=== PATIENT | male | born 1950 | race Caucasian/White ===

== ENCOUNTER 2017-12-12 19:52 | Inpatient (IN) | payer MEDICARE, BC ==
[~2017-12-12] VITALS: Ht 167.6 cm; Wt 75.4 kg
[~2017-12-12 19:52] MED LIST: ABAT250V; ALBU90OI6 INH; ALLO100 PO; AMOCLA875 PO; Aspir 8181 MG PO; CARV25 PO; COMBIVENT RESPIM4 GM INH; DOCU100 PO; FAMO20 PO; FOLI1 PO; FURO40 PO; HYDR100 PO; INS70/30PN SC; INSDET100 SC; INSU100I6; INSULANPEN SC; Isosorbide Mono30 MG PO; LEVSOD50 PO; LEVSOD75 PO; LISI5 PO; NIFE30ER PO; Novolog Fl100 UNIT/1 SC; OXYACE7.5T PO; Pepcid40 MG PO; ROSU10TA PO; SODBIC650 PO; SPIR25 PO; SUCR1 PO
[2017-12-12 20:28] LABS: BASOPHILS ABSOLUTE AUTO 0.09 K/mm3 (0.00-0.23); BASOPHILS PERCENT AUTO 1 % (0-2); EOSINOPHILS ABSOLUTE AUTO 0.15 K/mm3 (0.00-0.68); EOSINOPHILS PERCENT AUTO 2 % (0-6); Hematocrit 33.6 % (37.0-53.0); Hemoglobin 10.7 g/dL (13.5-17.5); IMMATURE GRAN ABSOLUTE AUTO 0.05 K/mm3 (0.00-0.10); IMMATURE GRAN PERCENT AUTO 1 % (0-1); LYMPHOCYTES PERCENT AUTO 13 % (21-46); MONOCYTES ABSOLUTE AUTO 1.01 K/mm3 (0.16-1.47); MONOCYTES PERCENT AUTO 14 % (4-13); Mean Corpuscular HGB 28.2 pg (26.0-34.0); Mean Corpuscular HGB Conc 31.8 g/dL (31.5-36.5); Mean Corpuscular Volume 88 fL (80-100); Mean Platelet Volume 9.2 fL (9.1-12.4); NEUTROPHILS ABSOLUTE AUTO 4.93 K/mm3 (1.96-9.15); NEUTROPHILS PERCENT AUTO 69 % (41-73); Platelet Count 304 K/mm3 (150-400); RDW Coefficient Variation 14.5 % (11.7-14.2); RDW Standard Deviation 46.8 fL (35.1-46.3); White Blood Cell Count 7.13 K/mm3 (4.00-11.30)
[2017-12-12 20:46] LABS: Influenza A Positive (NEGATIVE); Influenza B Negative (NEGATIVE)
[2017-12-12 20:50] LABS: Albumin, Blood 3.2 g/dL (3.4-5.0); Albumin/Globulin Ratio 0.6 (0.8-1.8); Bilirubin, Total 0.9 mg/dL (0.1-1.0); Bun/Creatinine Ratio 20.9 (12.0-20.0); Calcium, Blood 8.6 mg/dL (8.5-10.1); Creatinine, Blood 2.35 mg/dL (0.60-1.20); Potassium, Blood 3.7 mmol/L (3.5-5.5); Total Protein, Blood 8.2 g/dL (6.4-8.2); Troponin I 0.089 ng/mL (0.000-0.040)
[2017-12-12] MEDS ORDERED: FURO40 PO (21:19)
[2017-12-12] MEDS ORDERED: ALLO100 PO (21:21)
[2017-12-12 22:58] LABS: Troponin I 0.115 ng/mL (0.000-0.040)
[2017-12-13 05:58] LABS: BASOPHILS ABSOLUTE AUTO 0.08 K/mm3 (0.00-0.23); BASOPHILS PERCENT AUTO 1 % (0-2); EOSINOPHILS ABSOLUTE AUTO 0.08 K/mm3 (0.00-0.68); EOSINOPHILS PERCENT AUTO 1 % (0-6); Hematocrit 35.8 % (37.0-53.0); Hemoglobin 11.5 g/dL (13.5-17.5); IMMATURE GRAN ABSOLUTE AUTO 0.04 K/mm3 (0.00-0.10); IMMATURE GRAN PERCENT AUTO 1 % (0-1); LYMPHOCYTES PERCENT AUTO 14 % (21-46); MONOCYTES ABSOLUTE AUTO 0.81 K/mm3 (0.16-1.47); MONOCYTES PERCENT AUTO 11 % (4-13); Mean Corpuscular HGB 28.2 pg (26.0-34.0); Mean Corpuscular HGB Conc 32.1 g/dL (31.5-36.5); Mean Corpuscular Volume 88 fL (80-100); Mean Platelet Volume 9.3 fL (9.1-12.4); NEUTROPHILS ABSOLUTE AUTO 5.18 K/mm3 (1.96-9.15); NEUTROPHILS PERCENT AUTO 72 % (41-73); Platelet Count 302 K/mm3 (150-400); RDW Coefficient Variation 14.4 % (11.7-14.2); RDW Standard Deviation 46.4 fL (35.1-46.3); Red Blood Cell Count 4.08 M/mm3 (4.30-5.90); White Blood Cell Count 7.19 K/mm3 (4.00-11.30)
[2017-12-13 06:18] LABS: Albumin, Blood 2.9 g/dL (3.4-5.0); Albumin/Globulin Ratio 0.6 (0.8-1.8); Bilirubin, Total 0.7 mg/dL (0.1-1.0); Bun/Creatinine Ratio 22.5 (12.0-20.0); Calcium, Blood 8.3 mg/dL (8.5-10.1); Creatinine, Blood 2.09 mg/dL (0.60-1.20); Globulin, Blood 4.7 g/dL (2.2-4.0); Potassium, Blood 3.8 mmol/L (3.5-5.5); Total Protein, Blood 7.6 g/dL (6.4-8.2); Troponin I 0.372 ng/mL (0.000-0.040)
[2017-12-13 06:31] LABS: Creatine Kinase MB 2.3 ng/mL (0.0-3.6); Creatine Kinase MB Index 0.5 (0.0-4.0)
[2017-12-13 07:32] LABS: Source, Urine Clean Catch
[2017-12-13 07:34] LABS: Bilirubin, Urine Neg (Neg); Blood, Urine 3+ (Neg); Glucose Qualitative, Urine Neg (Neg); Ketones, Urine Neg (Neg); Leukocyte Esterase, Urine Neg (Neg); Nitrite, Urine Neg (Neg); Protein, Urine 3+ (Neg); Specific Gravity, Urine 1.015 (1.003-1.022); Urobilinogen, Urine NORM (Normal)
[2017-12-13 07:52] LABS: Appearance, Urine Clear (Clear); Color, Urine Yellow (P-Yellow)
[2017-12-13 07:55] LABS: Bacteria Not Seen /hpf; Squamous Epithelial Cells Few /hpf (Few); White Blood Cells, Urine Not Seen /hpf (0-5)
[2017-12-14 04:40] LABS: BASOPHILS ABSOLUTE AUTO 0.02 K/mm3 (0.00-0.23); BASOPHILS PERCENT AUTO 0 % (0-2); EOSINOPHILS PERCENT AUTO 0 % (0-6); Hematocrit 32.8 % (37.0-53.0); Hemoglobin 10.9 g/dL (13.5-17.5); IMMATURE GRAN ABSOLUTE AUTO 0.05 K/mm3 (0.00-0.10); IMMATURE GRAN PERCENT AUTO 1 % (0-1); LYMPHOCYTES ABSOLUTE AUTO 0.71 K/mm3 (0.84-5.20); LYMPHOCYTES PERCENT AUTO 8 % (21-46); MONOCYTES ABSOLUTE AUTO 0.29 K/mm3 (0.16-1.47); MONOCYTES PERCENT AUTO 3 % (4-13); Mean Corpuscular HGB 28.3 pg (26.0-34.0); Mean Corpuscular HGB Conc 33.2 g/dL (31.5-36.5); Mean Platelet Volume 9.6 fL (9.1-12.4); NEUTROPHILS ABSOLUTE AUTO 8.23 K/mm3 (1.96-9.15); NEUTROPHILS PERCENT AUTO 89 % (41-73); Platelet Count 286 K/mm3 (150-400); RDW Standard Deviation 43.5 fL (35.1-46.3); Red Blood Cell Count 3.85 M/mm3 (4.30-5.90)
[2017-12-14 04:45] LABS: Mean Corpuscular Volume 85 fL (80-100)
[2017-12-14 05:04] LABS: Creatine Kinase MB 1.9 ng/mL (0.0-3.6); Creatine Kinase MB Index 0.6 (0.0-4.0); Creatinine, Blood 2.41 mg/dL (0.60-1.20); Potassium, Blood 4.1 mmol/L (3.5-5.5)
[2017-12-15 04:26] LABS: Bun/Creatinine Ratio 33.9 (12.0-20.0); Calcium, Blood 7.8 mg/dL (8.5-10.1); Creatinine, Blood 2.42 mg/dL (0.60-1.20); Potassium, Blood 3.6 mmol/L (3.5-5.5)
[2017-12-16 05:38] LABS: Bun/Creatinine Ratio 35.3 (12.0-20.0); Calcium, Blood 7.9 mg/dL (8.5-10.1); Creatinine, Blood 2.38 mg/dL (0.60-1.20); Potassium, Blood 3.3 mmol/L (3.5-5.5)
[2017-12-17] MEDS ORDERED: OSEL75CA PO (10:36)
[2018-06-24] MEDS ORDERED: Ropinirole HCl0.5 MG PO (18:44)
[2018-06-24] MEDS ORDERED: GABA100 PO (18:44)
[2018-06-24] MEDS ORDERED: FOLI1 PO (18:45)
[2018-06-24] MEDS ORDERED: FAMO20 PO (18:45)
[2018-06-24] MEDS ORDERED: INSULANPEN (18:46)
[2018-06-24] MEDS ORDERED: Norco 5-325 Ta1 EACH PO (18:56)
== END 2017-12-17 11:25 | disposition home or self-care (01) | DRG 193 ==
LOC: ER 19:52 → PCU 21:41 → MEDS 21:41 → PCU 22:43 → MEDS 12-15 12:54 → ENPENDDIS 12-17 10:11 → MEDS 12-17 11:25
PROVIDERS: Emergency Medicine; Hospitalist; Internal Medicine
PROC: 5A09357 Assistance with Respiratory Ventilation, Less than 24 Consecutive Hours, Continuous Positive Airway Pressure (ICD-10-PCS; principal; 2017-12-12)
DX: J10.1 Influenza due to other identified influenza virus with other respiratory manifestations (principal); J96.01 Acute respiratory failure with hypoxia; I21.4 Non-ST elevation (NSTEMI) myocardial infarction; I50.33 Acute on chronic diastolic (congestive) heart failure; I13.0 Hypertensive heart and chronic kidney disease with heart failure and stage 1 through stage 4 chronic kidney disease, or unspecified chronic kidney disease; N18.3 Chronic kidney disease, stage 3 (moderate); E11.22 Type 2 diabetes mellitus with diabetic chronic kidney disease; E11.65 Type 2 diabetes mellitus with hyperglycemia; I25.10 Atherosclerotic heart disease of native coronary artery without angina pectoris; E78.5 Hyperlipidemia, unspecified; E03.9 Hypothyroidism, unspecified; K21.9 Gastro-esophageal reflux disease without esophagitis; D63.8 Anemia in other chronic diseases classified elsewhere; E66.9 Obesity, unspecified; J44.9 Chronic obstructive pulmonary disease, unspecified; T38.0X5A Adverse effect of glucocorticoids and synthetic analogues, initial encounter; Y92.239 Unspecified place in hospital as the place of occurrence of the external cause; Z95.810 Presence of automatic (implantable) cardiac defibrillator; Z88.5 Allergy status to narcotic agent; Z95.5 Presence of coronary angioplasty implant and graft; Z68.27 Body mass index [BMI] 27.0-27.9, adult; Z79.82 Long term (current) use of aspirin; Z79.4 Long term (current) use of insulin; Z79.899 Other long term (current) drug therapy
CPT/HCPCS: 36415; 71045; 71046; 80048; 80053; 81001; 82550; 82553; 82947; 83880; 84145; 84484; 85025; 87040; 87493; 87804; 93005; 93010; 94640; 94660; 94762; 99285; J0696; J1650; J1815; J1817; J1940; J1956; J2930; J7030

== ENCOUNTER 2018-03-31 13:10 | Inpatient (IN) | payer MEDICARE, BC ==
[~2018-03-31] VITALS: Ht 167.6 cm; Wt 72.1 kg
[~2018-03-31 13:10] MED LIST changes: +OSEL75CA PO
[2018-03-31] MEDS ORDERED: ISODIN20 PO (13:35)
[2018-03-31] MEDS ORDERED: METO2.5 PO (13:37)
[2018-03-31 13:40] LABS: Performing Lab VAMCL; Test Name PT
[2018-03-31 13:42] LABS: BASOPHILS ABSOLUTE AUTO 0.07 K/mm3 (0.00-0.23); BASOPHILS PERCENT AUTO 1 % (0-2); EOSINOPHILS ABSOLUTE AUTO 0.39 K/mm3 (0.00-0.68); EOSINOPHILS PERCENT AUTO 3 % (0-6); Hematocrit 31.1 % (37.0-53.0); Hemoglobin 11.3 g/dL (13.5-17.5); IMMATURE GRAN ABSOLUTE AUTO 0.07 K/mm3 (0.00-0.10); IMMATURE GRAN PERCENT AUTO 1 % (0-1); LYMPHOCYTES ABSOLUTE AUTO 3.27 K/mm3 (0.84-5.20); LYMPHOCYTES PERCENT AUTO 25 % (21-46); MONOCYTES ABSOLUTE AUTO 0.94 K/mm3 (0.16-1.47); MONOCYTES PERCENT AUTO 7 % (4-13); Mean Corpuscular HGB 28.8 pg (26.0-34.0); Mean Corpuscular HGB Conc 36.3 g/dL (31.5-36.5); Mean Corpuscular Volume 79 fL (80-100); Mean Platelet Volume 9.9 fL (9.1-12.4); NEUTROPHILS ABSOLUTE AUTO 8.24 K/mm3 (1.96-9.15); NEUTROPHILS PERCENT AUTO 64 % (41-73); Platelet Count 313 K/mm3 (150-400); RDW Coefficient Variation 14.3 % (11.7-14.2); RDW Standard Deviation 41.3 fL (35.1-46.3); Red Blood Cell Count 3.92 M/mm3 (4.30-5.90); White Blood Cell Count 12.98 K/mm3 (4.00-11.30)
[2018-03-31 14:02] LABS: Troponin I 0.021 ng/mL (0.000-0.040)
[2018-03-31 14:07] LABS: Albumin, Blood 3.2 g/dL (3.4-5.0); Albumin/Globulin Ratio 0.6 (0.8-1.8); Bilirubin, Total 0.6 mg/dL (0.1-1.0); Bun/Creatinine Ratio 32.6 (12.0-20.0); Calcium, Blood 8.8 mg/dL (8.5-10.1); Creatinine, Blood 3.4 mg/dL (0.60-1.20); Globulin, Blood 5.1 g/dL (2.2-4.0); Total Protein, Blood 8.3 g/dL (6.4-8.2)
[2018-03-31 18:23] LABS: Source, Urine Clean Catch
[2018-03-31 18:32] LABS: Bilirubin, Urine Neg (Neg); Blood, Urine Neg (Neg); Glucose Qualitative, Urine Neg (Neg); Ketones, Urine Neg (Neg); Leukocyte Esterase, Urine Neg (Neg); Nitrite, Urine Neg (Neg); Protein, Urine 3+ (Neg); Specific Gravity, Urine 1.015 (1.003-1.022); Urobilinogen, Urine NORM (Normal)
[2018-03-31 18:39] LABS: Appearance, Urine Clear (Clear); Color, Urine Yellow (P-Yellow)
[2018-03-31 18:40] LABS: Bacteria Rare /hpf; Red Blood Cells, Urine 0-2 /hpf (0-2); Squamous Epithelial Cells Few /hpf (Few); White Blood Cells, Urine 0-2 /hpf (0-5)
[2018-04-01 04:52] LABS: Hematocrit 29.9 % (37.0-53.0); Hemoglobin 10.5 g/dL (13.5-17.5); Mean Corpuscular HGB 28.8 pg (26.0-34.0); Mean Corpuscular HGB Conc 35.1 g/dL (31.5-36.5); Mean Platelet Volume 9.1 fL (9.1-12.4); Platelet Count 265 K/mm3 (150-400); RDW Coefficient Variation 14.2 % (11.7-14.2); RDW Standard Deviation 42.5 fL (35.1-46.3); Red Blood Cell Count 3.64 M/mm3 (4.30-5.90); White Blood Cell Count 8.63 K/mm3 (4.00-11.30)
[2018-04-01 05:00] LABS: Mean Corpuscular Volume 82 fL (80-100)
[2018-04-01 05:20] LABS: Magnesium, Blood 2.5 mg/dL (1.6-2.4)
[2018-04-01 05:21] LABS: Bun/Creatinine Ratio 34.1 (12.0-20.0); Calcium, Blood 8.1 mg/dL (8.5-10.1); Creatinine, Blood 3.31 mg/dL (0.60-1.20); Phosphorus, Blood 5.2 mg/dL (2.5-4.9); Potassium, Blood 3.4 mmol/L (3.5-5.5)
[2018-04-01 13:28] LABS: C-REACTIVE PROTEIN, EXT RANGE 6.2 mg/dL (0.000-0.300)
[2018-04-02 05:17] LABS: Anion Gap 9 mmol/L (6-16); Blood Urea Nitrogen 95 mg/dL (8-24); Bun/Creatinine Ratio 37.3 (12.0-20.0); CO2, Blood 27 mmol/L (21-32); Calcium, Blood 8.8 mg/dL (8.5-10.1); Chloride, Blood 98 mmol/L (98-108); Creatinine, Blood 2.55 mg/dL (0.60-1.20); Glomerular Filtration Rate 27 (60-); Glucose, Blood 268 mg/dL (70-99); Phosphorus, Blood 3.2 mg/dL (2.5-4.9); Potassium, Blood 4.4 mmol/L (3.5-5.5); Sodium, Blood 134 mmol/L (136-145)
[2018-04-02] MEDS ORDERED: Norco 10-325 T1 EACH PO (11:27)
[2018-04-02] MEDS ORDERED: DOCU100 PO (11:27)
[2018-04-02] MEDS ORDERED: LIDO700A20 TOP (11:28)
[2018-04-02] MEDS ORDERED: K-Dur20 MEQ PO (11:30)
[2018-04-02] MEDS ORDERED: CEPH500 PO (11:31)
[2018-04-02] MEDS ORDERED: MIRALAX17 GM PO (11:31)
== END 2018-04-02 12:22 | disposition home or self-care (01) | DRG 558 ==
LOC: ER 13:10 → MEDS 13:11 → ENPENDDIS 04-02 10:15 → MEDS 04-02 12:22
PROVIDERS: Emergency Medicine; Internal Medicine
DX: M70.41 Prepatellar bursitis, right knee (principal); L03.115 Cellulitis of right lower limb; I13.0 Hypertensive heart and chronic kidney disease with heart failure and stage 1 through stage 4 chronic kidney disease, or unspecified chronic kidney disease; N18.4 Chronic kidney disease, stage 4 (severe); I50.32 Chronic diastolic (congestive) heart failure; E87.2 Acidosis; E87.1 Hypo-osmolality and hyponatremia; E11.22 Type 2 diabetes mellitus with diabetic chronic kidney disease; E78.5 Hyperlipidemia, unspecified; I25.10 Atherosclerotic heart disease of native coronary artery without angina pectoris; E86.0 Dehydration; K21.9 Gastro-esophageal reflux disease without esophagitis; M10.9 Gout, unspecified; D63.8 Anemia in other chronic diseases classified elsewhere; K59.03 Drug induced constipation; T40.2X5A Adverse effect of other opioids, initial encounter; E87.6 Hypokalemia; T50.1X5A Adverse effect of loop [high-ceiling] diuretics, initial encounter; Z95.5 Presence of coronary angioplasty implant and graft; Z87.891 Personal history of nicotine dependence; I25.2 Old myocardial infarction; Z88.5 Allergy status to narcotic agent; Z79.82 Long term (current) use of aspirin; Z79.4 Long term (current) use of insulin; Z79.899 Other long term (current) drug therapy
CPT/HCPCS: 36415; 71045; 73562-RT; 80048; 80053; 80069; 81001; 82947; 83605; 83735; 83880; 84100; 84443; 84484; 85025; 85027; 85610; 85651; 86140; 87040; 93005; 93010; 94760; 96374; 96375; 99285; J0690; J1644; J1815; J1885; J2405; J3010; J3480

== ENCOUNTER 2019-05-13 08:15 | Day surgery (SDC) | payer MEDICARE, BC ==
[~2019-05-13 08:15] MED LIST changes: +CEPH500 PO; +GABA100 PO; +INSULIN ASPART SC; +K-Dur20 MEQ PO; +LIDO700A20 TOP; +METO2.5 PO; +MIRALAX17 GM PO; +Norco 10-325 T1 EACH PO; +Norco 5-325 Ta1 EACH PO; -Novolog Fl100 UNIT/1 SC; +Ropinirole HCl0.5 MG PO
[2019-05-14 07:08] LABS: HBSAG SCREEN Negative (Negative); HEP A AB, IGM Negative (Negative); HEP B CORE AB, IGM Negative (Negative); HEP C VIRUS AB <0.1 (0.0-0.9)
[2019-08-06] MEDS ORDERED: SINEMET 25-1001 EACH PO (03:20)
[2019-08-06] MEDS ORDERED: SERT50 PO (03:21)
[2019-08-06] MEDS ORDERED: METO25ER PO (03:21)
[2019-08-06] MEDS ORDERED: LOW DOSE ASPIRI81 MG PO (03:24)
== END 2019-05-13 23:04 | disposition home or self-care (01) ==
LOC: RAD 08:15
PROVIDERS: Internal Medicine Nephrology
DX: N18.5 Chronic kidney disease, stage 5 (principal); I51.7 Cardiomegaly
CPT/HCPCS: 36415; 71046; 80074

== ENCOUNTER 2019-05-19 08:02 | Day surgery (SDC) | payer MEDICARE, BC ==
[~2019-05-19] VITALS: Ht 167.6 cm; Wt 75.0 kg
[~2019-05-19 08:02] MED LIST changes: -CARV25 PO; -INSULIN ASPART SC; -NIFE30ER PO; -ROSU10TA PO
[2019-05-19] MEDS ORDERED: POTA10T PO (08:35)
[2019-05-19] MEDS ORDERED: BIOTIN5000 MCG PO (08:36)
[2019-05-19] MEDS ORDERED: TORS10 PO (08:37)
--- NOTE | 2019-05-19 10:28 | NUR ---
PT VERBALIZED UNDERSTANDING OF WRITTEN AND VERBAL D/C INST. -BLEEDING OR SWELLING R UPPPER CHEST AREA. IV REMOVED.
== END 2019-05-19 10:30 | disposition home or self-care (01) ==
LOC: MHTC 08:02
DX: I12.0 Hypertensive chronic kidney disease with stage 5 chronic kidney disease or end stage renal disease (principal); E11.22 Type 2 diabetes mellitus with diabetic chronic kidney disease; N18.6 End stage renal disease; D63.1 Anemia in chronic kidney disease; E78.5 Hyperlipidemia, unspecified; I25.10 Atherosclerotic heart disease of native coronary artery without angina pectoris; K21.9 Gastro-esophageal reflux disease without esophagitis; Z88.5 Allergy status to narcotic agent; Z79.899 Other long term (current) drug therapy; Z79.4 Long term (current) use of insulin
CPT/HCPCS: 36558; 76937; 82947; 99152; C1750; C1769; J1644; J2250; J3010; J7030; J7040

== ENCOUNTER 2019-08-06 00:20 | Inpatient (IN) | payer MEDICARE, BC ==
[~2019-08-06] VITALS: Ht 167.6 cm; Wt 73.8 kg
[~2019-08-06 00:20] MED LIST changes: +BIOTIN5000 MCG PO; +POTA10T PO
[2019-08-06 00:51] LABS: BASOPHILS ABSOLUTE AUTO 0.08 K/mm3 (0.00-0.23); BASOPHILS PERCENT AUTO 1 % (0-2); EOSINOPHILS ABSOLUTE AUTO 0.04 K/mm3 (0.00-0.68); EOSINOPHILS PERCENT AUTO 0 % (0-6); Hematocrit 28.5 % (37.0-53.0); Hemoglobin 9.5 g/dL (13.5-17.5); IMMATURE GRAN ABSOLUTE AUTO 0.07 K/mm3 (0.00-0.10); IMMATURE GRAN PERCENT AUTO 1 % (0-1); LYMPHOCYTES ABSOLUTE AUTO 1.43 K/mm3 (0.84-5.20); LYMPHOCYTES PERCENT AUTO 10 % (21-46); MONOCYTES ABSOLUTE AUTO 0.62 K/mm3 (0.16-1.47); MONOCYTES PERCENT AUTO 4 % (4-13); Mean Corpuscular HGB 30.6 pg (26.0-34.0); Mean Corpuscular HGB Conc 33.3 g/dL (31.5-36.5); Mean Corpuscular Volume 92 fL (80-100); Mean Platelet Volume 9.8 fL (9.1-12.4); NEUTROPHILS ABSOLUTE AUTO 12.39 K/mm3 (1.96-9.15); NEUTROPHILS PERCENT AUTO 85 % (41-73); Platelet Count 283 K/mm3 (150-400); RDW Coefficient Variation 14.7 % (11.7-14.2); RDW Standard Deviation 49.1 fL (35.1-46.3); White Blood Cell Count 14.63 K/mm3 (4.00-11.30)
[2019-08-06 01:15] LABS: Albumin, Blood 3.4 g/dL (3.4-5.0); Albumin/Globulin Ratio 0.8 (0.8-1.8); Bun/Creatinine Ratio 8.7 (12.0-20.0); Calcium, Blood 8.8 mg/dL (8.5-10.1); Creatinine, Blood 2.08 mg/dL (0.60-1.20); Globulin, Blood 4.4 g/dL (2.2-4.0); Potassium, Blood 3.7 mmol/L (3.5-5.5); Total Protein, Blood 7.8 g/dL (6.4-8.2)
[2019-08-06 01:28] LABS: Troponin I 0.968 ng/mL (0.000-0.040)
[2019-08-06 02:45] LABS: International Normalized Ratio 1.03; Prothrombin Time Results 10.9 Sec (9.7-11.5)
[2019-08-06] MEDS ORDERED: RENAL-VITE TAB0.8 MG PO (03:26)
--- NOTE | 2019-08-06 06:04 | NUR ---
SUMMARY PT ARRIVED TO ICU 6 FROM ER PCU ADMIT AT 0300. PT DENIES CP AND SOB. MILD NAUSEA. HEPARIN GTT STARTED. PT HAS BEEN SLEEPING SINCE. NO SIGN OF DISTRESS. CALL LIGHT IN REACH.
[2019-08-06 06:49] LABS: Bun/Creatinine Ratio 9.3 (12.0-20.0); Calcium, Blood 8.6 mg/dL (8.5-10.1); Creatinine, Blood 2.47 mg/dL (0.60-1.20); Potassium, Blood 3.4 mmol/L (3.5-5.5)
--- NOTE | 2019-08-06 07:45 | NUR ---
ASSUMED CARE / DR MARIO: REPORT RECEIVED FROM RAULITO Villa RN. ASSUMED CARE OF THIS PT AT APPROX 0700. ON ASSESSMENT, PT IS HAVING C/O ACTIVE CP, RATED 4/10. STS PAIN IS BURNING & RADIATING TO HIS CENTRAL BACK. 2L NC IN PLACE W/ O2 SATS > 90%, PT STS INCREASED SOB W/ CP. CRITICAL HIGH TROPONIN VALUE HAS BEEN REPORTED TO HOSPITALIST, DR HART, ORDERS FOR ANTIEMETICS & EKG HAVE BEEN PLACED. CALL TO DR MARIO TO NOTIFY HIM OF PT's CHANGE IN CONDITION ALSO. HEPARIN DRIP CONTINUES PER PHARMACY MANAGEMENT. DR MARIO AT BEDSIDE. STS HE WOULD LIKE THE PT TO HAVE AN ANGIOGRAM THIS AM. CONSENT HAS BEEN STARTED & WILL BE COMPLETED WHEN PT's IS IN ROOM & ABLE TO SIGN. WILL CONTINUE TO MONITOR & UPDATE NEEDED.
--- NOTE | 2019-08-06 09:33 | NUR ---
ORDER CLARIFICATION: DR MARIO AT BEDSIDE TO COMPLETE CONSENT W/ PT & PT's . ORDER CLARIFICATION REQUESTED REGARDING TWO PLAVIX ORDERS FOR 0900. HE STS TO GIVE THE LOADING DOSE OF PLAVIX, 300 MG THIS AM.
--- NOTE | 2019-08-06 10:31 | NUR ---
DR DUGAN: CALL TO PROVIDER TO NOTIFY HIM OF PT's CHANGE IN CONDITION & DR MAROI's PLAN FOR ANGIOGRAM. HE STS THIS IS OKAY & HE WILL ADJUST MEDS/ DIALYSIS PRN.
--- NOTE | 2019-08-06 10:37 | NUR ---
RESORT DESK CLERK: PT OUT TO HEART CENTER VIA BED AT APPROX 1030.
--- NOTE | 2019-08-06 11:12 | NUR ---
PATIENT GAVE STUDENT NURSE PERMISSION TO PERFORM CARE ON 08/06/19.
--- NOTE | 2019-08-06 12:00 | NUR ---
UPDATE: HEPARIN MAY BE RESTARTED ONCE TR BAND DEFLATION COMPLETE & BAND HAS BEEN REMOVED. WILL NOTIFY PHARMACIST THAT HEPARIN HAS BEEN OFF FOR THE MORNING.
--- NOTE | 2019-08-06 12:16 | NUR ---
RETURN FROM HEART CENTER: PT RETURNED TO ROOM ICU-06 AT APPROX 1200. ON ARRIVAL HE IS AWAKE, BUT DROWSY. ANSWERS QUESTIONS APPROPRIATELY. HE STS MODERATE IMPROVEMENT TO CP. VSS. L RADIAL SITE WNL, TR BAND W/ 9CC AIR IN PLACE. AREA FREE OF BLEEDING, BRUISING OR HEMATOMA FORMATION NOTED. CAP REFILL < 3 SECONDS & GOOD PLETH WAVEFORM NOTED TO AFFECTED EXTREMITY. WILL CONTINUE TO MONITOR & UPDATE NEEDED.
--- NOTE | 2019-08-06 16:40 | NUR ---
DR HART: CALL TO PROVIDER TO REQUEST CPAP ORDERS, PT WEARS CPAP NIGHTLY AT HOME. ORDERS PLACED.
--- NOTE | 2019-08-06 16:42 | NUR ---
UPDATE: CALL TO ZACARIAS, PT's . REQUEST THAT SHE BRINGS PT's CPAP IN TONIGHT IF SHE PLANS TO COME BACK. ZACARIAS STS THAT SHE WILL BRING THE PT's CPAP.
--- NOTE | 2019-08-06 17:30 | NUR ---
HEPARIN DRIP: HEPARIN DRIP HAS BEEN RESTARTED AT [address] MARIO. TR BAND HAS BEEN DEFLATED FOR 1 HR. STOP IN HEPARIN THERAPY HAS BEEN DISCUSSED W/ NANCI CHRISTIAN. HE STS OKAY TO RESUME HEPARIN AT PRIOR RATE OF 14 U/KG/HR & HE WILL PLACE ORDERS FOR F/U aPPT DRAW THIS EVENING. WILL CONTINUE TO MONITOR & UPDATE NEEDED.
--- NOTE | 2019-08-06 18:36 | NUR ---
SHIFT SUMMARY: NO ACUTE CHANGES SINCE PRIOR UPDATES. PT REMAINS A&O, PLEASANT & COOPERATIVE. HE IS TREMULOUS, WHICH HE STS IS BASELINE. HE CONTINUES ON 2L NC W/ O2 SATS > 90%. MONITOR SHOWS SR W/ BBB, HR 70s. PT HAS NO GI COMPLAINTS, VOIDS ON RARELY R/T DIALYSIS. L RADIAL ACCESS SITE WNL, TEGADERM CDI. WILL CONTINUE TO MONITOR & REPORT OFF TO ONCOMING RN.
--- NOTE | 2019-08-06 22:01 | NUR ---
AT 1999 PT BEGAN HAVING PAIN RADIATE FROM R ANTERIOR RIB TO POSTERIOR SHOULDER. STATES IT FEELS LIKE THE PAIN HE EXPERIENCED THAT BROUGHT HIM IN TO THE HOSPITAL. STATES IT FEELS WORSE WITH DEEP INHALATION. RATES IT 5/10. NOTIFIED DR. MARIO WHO SAID TO CALL HOSPITALIST FOR PAIN REGIMEN. JOSE ANTONIO INSTRUMENT TECHNOLOGIST CAME TO THE ROOM TO SEE PT. NITRO SL WAS GIVEN AND ONLY BROUGHT THE PAIN DOWN "A HAIR" PER PT. DILAUDID WAS THEN GIVEN AND PT STATES 0/10 PAIN. PT IS NOW RESTING COMFORTABLEY. HAS L RADIAL ACCESS SITE THAT IS STABLE WITH ARMBOARD IN PLACE. NO REQUESTS.
--- NOTE | 2019-08-07 00:10 | NUR ---
PT RESTING COMFORTABLEY WITH HOME CPAP ON. L RADIAL SITE IS STABLE.
[2019-08-07 05:47] LABS: Albumin, Blood 3.2 g/dL (3.4-5.0); Anion Gap 10 mmol/L (6-16); Blood Urea Nitrogen 41 mg/dL (8-24); Bun/Creatinine Ratio 9.4 (12.0-20.0); CO2, Blood 33 mmol/L (21-32); Calcium, Blood 8.5 mg/dL (8.5-10.1); Chloride, Blood 93 mmol/L (98-108); Creatinine, Blood 4.36 mg/dL (0.60-1.20); Glomerular Filtration Rate 14 (60-); Glucose, Blood 227 mg/dL (70-99); Magnesium, Blood 2.1 mg/dL (1.6-2.4); Phosphorus, Blood 5.4 mg/dL (2.5-4.9); Potassium, Blood 3.6 mmol/L (3.5-5.5); Sodium, Blood 136 mmol/L (136-145)
[2019-08-07 05:50] LABS: Hematocrit 27.4 % (37.0-53.0); Hemoglobin 8.6 g/dL (13.5-17.5)
--- NOTE | 2019-08-07 06:29 | NUR ---
SUMMARY PT RESTING IN BED. DENIES PAIN, N/V, AND SOB THIS AM. DID NOT HAVE ANY PAIN AFTER RECEIVING DILAUDID ONE TIME FOR PAIN IN R ANTERIOR CHEST THAT RADIATED TO POSTERIOR SHOULDER. L RADIAL ACCESS SITE HAS BEEN STABLE ALL NIGHT AND ARM BOARD IN PLACE. HEPARIN GTT BEING MANAGED BY PHARMACY. NO SIGN OF DISTRESS THIS AM.
[2019-08-07 09:14] LABS: Percent Saturation 21.2 % (20.0-50.0)
--- NOTE | 2019-08-07 09:25 | NUR ---
Initial Visit: Pt received CPR this morning. Savannah fernanda called to room. had just arrived back to the room directly following the resusitation efforts. Pt is now sitting up in bed, allowing care. Pt did not receive shocks, was not intubated. , sitting by the bedside now, appears very traumatized by events. Ice water given to her. She is listening to the healthcare dialogue in the room, and states that she understands what is being said. She reports that she takes pt's blood pressure every day, sometimes twice per day. Educated that pt will likely get quite a bit of attention today. She states she understands. Doctor is telling her that dialysis will be delayed until he appears stable. She voices understanding. She has no other questions. She reports that she has sleep well last night. She plans on calling some friends to have some support and company in the hospital. Instructed that this is a good idea. She has eaten breakfast, plans to self care as needed today. Will remain available.
--- NOTE | 2019-08-07 09:55 | NUR ---
CODE: PT GOT UP TO THE COMMODE AND HAD A SMALL BM. PT DENIED ANY DIZZINESS, GOT BACK TO BED WITH MINIMAL ASSIST AND LAID DOWN. WHILE THIS RN WAS RINSING OUT THE COMMODE HEARD PT MAKE GURGLING SOUND. WHEN LOOKED OVER AT PT HIS MOUTH AND NOSE WERE FULL OF VOMIT. IMMEDIATELY CALLED FOR HELP WHILE TRYING TO GET PT ON HIS SIDE AND GET SUCTION. DR. CHARLES CAME TO THE BEDSIDE AND THEN PT STARTED TO TANJA DOWN. CODE CALLED, PULSE WAS LOST CPR STARTED, SEE CODE SHEET. ROSC AFTER ABOUT 3 MINUTES. BP STARTED OUT OK, THEN DROPPED TO THE 70S, BOLUS STARTED PER DR. SANCHEZ. DR. HART AT THE BEDSIDE AT THIS TIME WELL AND DR. MARIO NOTIFIED OF PT CONDITION. AFTER THINGS HAD SETTLED DOWN PT'S LINENS CHANGED BECAUSE THEY WERE WET FROM PT'S BEING DIAPHORETIC AND HE SOILED HIMSELF. THIS FINISHED UP PT BECAME NAUSEOUS AGAIN. SAT PT UP, SUCTION AT THE READY. PT STARTED TO TANJA DOWN HE DRY HEAVED. ATROPINE AT THE BEDSIDE. ZOFRAN GIVEN. DR. SANCHEZ NOTIFIED OF THESE EVENTS AND GAVE ORDERS TO START DOPAMINE PT'S BP WAS ALSO STILL LOW. PT'S BP NOW 116/40 WITH DOPAMINE AT 8MCG/KG/MIN. MORE ZOFRAN GIVEN TO HELP WITH NAUSEA. LOW DOSE MORPHINE GIVEN FOR STABBING CHEST/BACK PAIN, MDS AWARE OF THIS PAIN. PT'S TO THE BEDSIDE AFTER CODE AND TALED WITH DR. CHARLES, DR. HART AND PALLIATIVE CARE HERE TO ASSIST WELL. PT CURRENTLY RESTING. CONTINUING TO MONITOR CLOSELY.
--- NOTE | 2019-08-07 12:41 | NUR ---
REASSESSMENT: PT HAS BEEN RESTING IN BED WITH EYES CLOSED. HE HAS A HAD A COUPLE MORE EPISODES OF NAUSEA, COMPAZINE GIVEN AND THEY SEEM TO HAVE CALMED DOWN. PT'S IV IN HIS L FA WENT BACK. POWERGLIDE PLACED AND RIGITIDINE INJECTED AROUND INFILTRATED SITE SINCE PT HAD DOPAMINE INFUSING THROUGH IT. ATTEMPTED TO WEAN DOPAMINE GTT OFF BUT PT'S SBP DROPPED TO THE 70S, CURRENTLY GOING AT 5MCG/KG/MIN. PT TO TRANSFER UP TO [facility], PT'S AWARE AND AT THE BEDSIDE. CONTINUING TO MONITOR.
--- NOTE | 2019-08-07 13:57 | NUR ---
ASSUMED CARE: RECEIVED REPORT FROM ANNA MAYORGA RN. PT SITTING BACK IN BED APPEARS TO BE TRYING TO REST. RESPONDS TO VERBAL STIMULATION. FAMILY IN ROOM AWAITING DR MARIO TO DISCUSS THE PLAN FOR PT. DOPAMINE TURNED DOWN TO 1.5 MCG/KG/MIN. WILL CONTINUE TO MONITOR AND ASSESS FURTHER.
--- NOTE | 2019-08-07 14:44 | NUR ---
RENU BED: RECEIVED BED ASSIGNMENT. CALL TO ROB GOMEZ FOR ROOM 4218.
--- NOTE | 2019-08-07 15:33 | NUR ---
TRANSFER BY GROUND: AMBULANCE ARILUISA. PT TRANSFERED TO STRETCHER IV PUMPS RUNNING AND PROGRAMED BY THIS RN. HEPARIN @ 17 UNITS/KG/HR @ DOSEING WT OF 73KG. DOPAMINE @ 3 MCG/KG/MIN WITH DOSING WT OF 73KG. REPORT GIVEN TO AMBULANCE STAFF. OUT THE DOOR AT 1530
== END 2019-08-07 15:25 | disposition short-term general hospital (02) | DRG 280 ==
LOC: ER 00:20 → ICUE 03:00 → ER 03:03 → ICUW 03:03 → ICUE 03:03 → ICUW 03:04 → ICUE 03:04 → ICUW 08-07 10:40 → ICUE 08-07 10:40
PROVIDERS: Emergency Medicine; Internal Medicine Nephrology; Nurse Practitioner Acute Care; ADMIT Hospitalist
PROC: B2111ZZ Fluoroscopy of Multiple Coronary Arteries using Low Osmolar Contrast (ICD-10-PCS; principal; 2019-08-06)
DX: I21.4 Non-ST elevation (NSTEMI) myocardial infarction (principal); N18.6 End stage renal disease; R57.0 Cardiogenic shock; I12.0 Hypertensive chronic kidney disease with stage 5 chronic kidney disease or end stage renal disease; I25.10 Atherosclerotic heart disease of native coronary artery without angina pectoris; Z95.5 Presence of coronary angioplasty implant and graft; I25.2 Old myocardial infarction; E11.22 Type 2 diabetes mellitus with diabetic chronic kidney disease; Z87.891 Personal history of nicotine dependence; Z79.84 Long term (current) use of oral hypoglycemic drugs; E87.5 Hyperkalemia; K21.9 Gastro-esophageal reflux disease without esophagitis; M10.9 Gout, unspecified; D63.1 Anemia in chronic kidney disease; Z79.82 Long term (current) use of aspirin; I25.5 Ischemic cardiomyopathy; Z99.2 Dependence on renal dialysis
CPT/HCPCS: 36415; 71045; 80048; 80053; 80069; 82728; 82947; 83540; 83550; 83690; 83735; 84484; 85014; 85018; 85025; 85610; 85730; 93005; 93010; 93308; 93458; 96374; 99152; 99153; 99285-25; C1751; C1769; C1894; J0461; J0696; J0780; J0881; J1170; J1265; J1644; J2250; J2270; J2405; J2760; J3010; J7030; J7120; Q9967

== ENCOUNTER 2019-08-14 15:57 | Inpatient (IN) | payer MEDICARE, BC ==
[~2019-08-14] VITALS: Ht 167.6 cm; Wt 72.3 kg
[~2019-08-14 15:57] MED LIST changes: +RENAL-VITE TAB0.8 MG PO
[2019-08-14 16:43] LABS: BASOPHILS ABSOLUTE AUTO 0.08 K/mm3 (0.00-0.23); BASOPHILS PERCENT AUTO 1 % (0-2); EOSINOPHILS ABSOLUTE AUTO 0.41 K/mm3 (0.00-0.68); EOSINOPHILS PERCENT AUTO 3 % (0-6); Hemoglobin 9.8 g/dL (13.5-17.5); IMMATURE GRAN PERCENT AUTO 2 % (0-1); LYMPHOCYTES ABSOLUTE AUTO 2.02 K/mm3 (0.84-5.20); LYMPHOCYTES PERCENT AUTO 15 % (21-46); MONOCYTES ABSOLUTE AUTO 0.89 K/mm3 (0.16-1.47); MONOCYTES PERCENT AUTO 7 % (4-13); Mean Corpuscular HGB 30.3 pg (26.0-34.0); Mean Corpuscular HGB Conc 32.7 g/dL (31.5-36.5); Mean Corpuscular Volume 93 fL (80-100); Mean Platelet Volume 10.2 fL (9.1-12.4); NEUTROPHILS ABSOLUTE AUTO 9.63 K/mm3 (1.96-9.15); NEUTROPHILS PERCENT AUTO 73 % (41-73); Platelet Count 286 K/mm3 (150-400); Red Blood Cell Count 3.23 M/mm3 (4.30-5.90); White Blood Cell Count 13.23 K/mm3 (4.00-11.30)
[2019-08-14 17:20] LABS: Albumin, Blood 3.2 g/dL (3.4-5.0); Albumin/Globulin Ratio 0.8 (0.8-1.8); Bilirubin, Total 0.8 mg/dL (0.1-1.0); Bun/Creatinine Ratio 13.9 (12.0-20.0); Calcium, Blood 8.3 mg/dL (8.5-10.1); Creatinine, Blood 3.53 mg/dL (0.60-1.20); Globulin, Blood 4.1 g/dL (2.2-4.0); Potassium, Blood 3.4 mmol/L (3.5-5.5); Total Protein, Blood 7.3 g/dL (6.4-8.2)
[2019-08-14] MEDS ORDERED: Isosorbide Mono60 MG PO (18:52)
[2019-08-14] MEDS ORDERED: Metoclopramide H5 MG PO (18:52)
[2019-08-14] MEDS ORDERED: CARV6.25 PO (18:54)
[2019-08-14] MEDS ORDERED: Sinemet 25-1001 EACH PO (18:56)
[2019-08-14] MEDS ORDERED: NIFE30ER PO (18:58)
[2019-08-14] MEDS ORDERED: ROSU10TA PO (18:59)
[2019-08-14] MEDS ORDERED: SERT50 PO (18:59)
[2019-08-14] MEDS ORDERED: METO100ER PO (19:01)
[2019-08-14] MEDS ORDERED: NOVOLOG FL100 UNIT/1 SC (19:02)
[2019-08-14] MEDS ORDERED: ALLO100 PO (19:03)
[2019-08-14] MEDS ORDERED: LOW DOSE ASPIRI81 MG PO (19:04)
[2019-08-14] MEDS ORDERED: LEVO-T25 MCG PO (19:07)
[2019-08-14] MEDS ORDERED: INSULANPEN SC (19:28)
[2019-08-14] MEDS ORDERED: FOLI1 PO (19:29)
[2019-08-14] MEDS ORDERED: FAMO20 PO (19:31)
[2019-08-14] MEDS ORDERED: VP-VITE RX TAB1 EACH PO (19:32)
[2019-08-14] MEDS ORDERED: TORS10 PO (19:32)
[2019-08-14] MEDS ORDERED: MERIBIN5 MG PO (20:49)
[2019-08-14] MEDS ORDERED: Fruity C250 MG PO (20:50)
[2019-08-14] MEDS ORDERED: FERSU300 PO (21:03)
[2019-08-14] MEDS ORDERED: NITR.4SL SL (21:03)
--- NOTE | 2019-08-15 00:12 | NUR ---
2130 69 Y/O MALE ADMITTED TO 310 PER CART FROM ER WITH AND NEPHEW AT SIDE, PT WEARING CARDIAC BELT AROUND CHEST AFTER RECENT DISCHARGE FROM [facility] IN [address], [place] ON 08/13/19. DAVE HEAD NURSE AT SIDE FOR BEDSIDE TREATMENT.
[2019-08-15 02:40] LABS: Hemoglobin 9.7 g/dL (13.5-17.5)
[2019-08-15 02:58] LABS: Albumin, Blood 3.2 g/dL (3.4-5.0); Anion Gap 6 mmol/L (6-16); Blood Urea Nitrogen 30 mg/dL (8-24); CO2, Blood 32 mmol/L (21-32); Calcium, Blood 8.2 mg/dL (8.5-10.1); Chloride, Blood 95 mmol/L (98-108); Creatinine, Blood 2.72 mg/dL (0.60-1.20); Glomerular Filtration Rate 25 (60-); Glucose, Blood 188 mg/dL (70-99); Magnesium, Blood 1.8 mg/dL (1.6-2.4); Potassium, Blood 3.4 mmol/L (3.5-5.5); Sodium, Blood 133 mmol/L (136-145)
--- NOTE | 2019-08-15 04:46 | NUR ---
SHIFT SUMMARY: 69 Y/O MALE RESTED COMFORTABLY ALL SHIFT, PT COMPLETED DIALYIS LAST PM VIA [facility] AT BEDSIDE, PT WEARING VEST DEFIBRILLATOR SINCE DISCHARGE FROM [facility] 08/13, TELEMETRY REFLECTS NSR WITH HEART RATE 71 PER DANIELLE SANTOS, DENIES CHEST PAIN OR SOB, EAGER TO RETURN HOME TODAY, BED LOW POSITION WITH CALL LIGHT AT SIDE.
--- NOTE | 2019-08-15 17:00 | NUR ---
DISCHARGE PT IS A/O X4, PLEASANT AFFECT, UP IND TO BR. DR DUGAN IN TO SEE HIM THIS AM, ORDER DIALYSIS TODAY, STATE AFTER PT MAY GO HOME. SENIOR IOS DEVELOPER BEGIN HD APPROX 1230. SUPERVISOR TOY ASSEMBLY IN TO SEE PT, STATE HE MAY HAVE TO STAY OVER THE WEEKEND R/T COMPLICATIONS W [facility] DIALYSIS R/T VEST DEFIBRILATOR THAT WAS PLACED @ [facility] FOLLOWING AR. DR GUILLEN IN THIS AFTERNOON TO SPEAK W PT & , STATE NO DIALYSIS TOMORROW. THEY MAY D/C HOME AFTER HD & F/U W DR DUGAN ON SATURDAY. THEY STATE SATISFACTION. IV D/C INTACT. D/C INSTRUCT REVIEWED W PT & . FOLLOWING HD AIRCRAFT SHIPPING CHECKER PROVIDE PT W/C ESCORT FROM HOSP ACCOMPANIED BY HIS . THEY ARE PLEASANT/APPRECIATIVE.
== END 2019-08-15 16:58 | disposition home or self-care (01) | DRG 699 ==
LOC: ER 15:57 → MEDS 15:58 → ER 21:23 → MEDS 21:30 → ENPENDDIS 08-15 15:48 → MEDS 08-15 16:58
PROVIDERS: Internal Medicine Nephrology; Physician Assistant; ADMIT Internal Medicine
PROC: 5A1D70Z Performance of Urinary Filtration, Intermittent, Less than 6 Hours Per Day (ICD-10-PCS; principal; 2019-08-15)
DX: E11.22 Type 2 diabetes mellitus with diabetic chronic kidney disease (principal); I13.2 Hypertensive heart and chronic kidney disease with heart failure and with stage 5 chronic kidney disease, or end stage renal disease; I50.42 Chronic combined systolic (congestive) and diastolic (congestive) heart failure; E87.1 Hypo-osmolality and hyponatremia; N18.6 End stage renal disease; N25.81 Secondary hyperparathyroidism of renal origin; Z99.2 Dependence on renal dialysis; I25.10 Atherosclerotic heart disease of native coronary artery without angina pectoris; D63.1 Anemia in chronic kidney disease; F32.9 Major depressive disorder, single episode, unspecified; K21.9 Gastro-esophageal reflux disease without esophagitis; M10.9 Gout, unspecified; E78.5 Hyperlipidemia, unspecified; E87.6 Hypokalemia; E83.39 Other disorders of phosphorus metabolism; Z86.74 Personal history of sudden cardiac arrest; I25.2 Old myocardial infarction; Z95.5 Presence of coronary angioplasty implant and graft; Z87.891 Personal history of nicotine dependence; Z88.5 Allergy status to narcotic agent; Z79.82 Long term (current) use of aspirin; Z79.4 Long term (current) use of insulin; Z79.899 Other long term (current) drug therapy
CPT/HCPCS: 36415; 80053; 80069; 82947; 83735; 84145; 85014; 85018; 85025; J0881; J1815; J3480

== ENCOUNTER 2019-08-19 10:25 | Observation (INO) | payer MEDICARE, BC ==
[~2019-08-19] VITALS: Ht 167.6 cm; Wt 69.4 kg
[~2019-08-19 10:25] MED LIST changes: +CARV6.25 PO; +FERSU300 PO; +Fruity C250 MG PO; +Isosorbide Mono60 MG PO; +LEVO-T25 MCG PO; +LOW DOSE ASPIRI81 MG PO; +MERIBIN5 MG PO; +METO100ER PO; +Metoclopramide H5 MG PO; +NIFE30ER PO; +NITR.4SL SL; +NOVOLOG FL100 UNIT/1 SC; +ROSU10TA PO; +SERT50 PO; +Sinemet 25-1001 EACH PO; +TORS10 PO; +VP-VITE RX TAB1 EACH PO
[2019-08-19 11:46] LABS: BASOPHILS ABSOLUTE AUTO 0.11 K/mm3 (0.00-0.23); BASOPHILS PERCENT AUTO 1 % (0-2); EOSINOPHILS ABSOLUTE AUTO 0.33 K/mm3 (0.00-0.68); EOSINOPHILS PERCENT AUTO 4 % (0-6); Hematocrit 32.5 % (37.0-53.0); Hemoglobin 10.2 g/dL (13.5-17.5); IMMATURE GRAN ABSOLUTE AUTO 0.04 K/mm3 (0.00-0.10); IMMATURE GRAN PERCENT AUTO 0 % (0-1); LYMPHOCYTES PERCENT AUTO 19 % (21-46); MONOCYTES ABSOLUTE AUTO 0.51 K/mm3 (0.16-1.47); MONOCYTES PERCENT AUTO 6 % (4-13); Mean Corpuscular HGB 29.1 pg (26.0-34.0); Mean Corpuscular HGB Conc 31.4 g/dL (31.5-36.5); Mean Corpuscular Volume 93 fL (80-100); Mean Platelet Volume 9.7 fL (9.1-12.4); NEUTROPHILS ABSOLUTE AUTO 6.41 K/mm3 (1.96-9.15); NEUTROPHILS PERCENT AUTO 71 % (41-73); Platelet Count 276 K/mm3 (150-400); RDW Coefficient Variation 15.6 % (11.7-14.2); RDW Standard Deviation 52.7 fL (35.1-46.3); Red Blood Cell Count 3.51 M/mm3 (4.30-5.90)
[2019-08-19 12:00] LABS: Albumin, Blood 3.4 g/dL (3.4-5.0); Albumin/Globulin Ratio 0.8 (0.8-1.8); Bilirubin, Total 0.5 mg/dL (0.1-1.0); Bun/Creatinine Ratio 18.6 (12.0-20.0); Calcium, Blood 8.4 mg/dL (8.5-10.1); Creatinine, Blood 2.9 mg/dL (0.60-1.20); Globulin, Blood 4.2 g/dL (2.2-4.0); Potassium, Blood 4.4 mmol/L (3.5-5.5); Total Protein, Blood 7.6 g/dL (6.4-8.2); Troponin I 0.095 ng/mL (0.000-0.040)
--- NOTE | 2019-08-19 17:41 | NUR ---
SHIFT SUMMARY ER ADMIT THIS AFTERNOON. PT IN NEED OF DIALYSIS THAT IS SCHEDULED IN A.M. INDEPENDENT. OX4. CBG'S AC AND HS. DENIES ANY C/O. LIVES AT HOME WITH . MAKES URINE. DENIES ANY PAIN. POSSIBLE DC AFTER DIALYSIS TOMORROW.
[2019-08-20 04:45] LABS: Hematocrit 31.4 % (37.0-53.0); Hemoglobin 9.8 g/dL (13.5-17.5)
[2019-08-20 05:01] LABS: Albumin, Blood 3.2 g/dL (3.4-5.0); Anion Gap 9 mmol/L (6-16); Blood Urea Nitrogen 56 mg/dL (8-24); Bun/Creatinine Ratio 21.5 (12.0-20.0); CO2, Blood 21 mmol/L (21-32); Calcium, Blood 8.5 mg/dL (8.5-10.1); Chloride, Blood 107 mmol/L (98-108); Creatinine, Blood 2.61 mg/dL (0.60-1.20); Glomerular Filtration Rate 26 (60-); Glucose, Blood 153 mg/dL (70-99); Magnesium, Blood 1.4 mg/dL (1.6-2.4); Phosphorus, Blood 3.2 mg/dL (2.5-4.9); Potassium, Blood 4.4 mmol/L (3.5-5.5); Sodium, Blood 137 mmol/L (136-145)
--- NOTE | 2019-08-20 06:00 | NUR ---
SHIFT SUMMARY NO ACUTE CHANGES TONIGHT. PT IS A&OX4, INDEPENDENT IN RM. PERMACATH TO R CHEST IS C/D/I. PT HAS LIFEVEST, EXTERNAL DEFIB IN PLACE. DENIES ANY PAIN, N/V, DYSPNEA. AWAITING HEMODIALYSIS THEN WILL D/C HOME TODAY PER DR DUGAN. WILL CONT TO MONITOR AND PROVIDE CARE UNTIL PRESUMED BY ONCOMING RN.
--- NOTE | 2019-08-20 12:02 | NUR ---
PT DISCHARGED TO HOME WITH SPOUSE. PT PROVIDED DISCHARGE EDUCATION AND DISCHARGE MEDICATION EDUCATION. PT ALERT AND ORIENTED, UP INDEPENDENTLY IN ROOM PRIOR TO DISCHARGE. IV REMOVED PRIOR TO DISCHARGE. PT TO VEHICLE VIA ESCORT. PT TRANSFERED INDEPENDENTLY FROM WHEELCHAIR TO VEHICLE.
== END 2019-08-20 11:39 | disposition home or self-care (01) ==
LOC: ER 10:25 → MEDS 10:26 → ER 13:13 → MEDS 13:13
PROVIDERS: Internal Medicine Nephrology; Physician Assistant; ADMIT Internal Medicine
DX: I13.2 Hypertensive heart and chronic kidney disease with heart failure and with stage 5 chronic kidney disease, or end stage renal disease (principal); I50.42 Chronic combined systolic (congestive) and diastolic (congestive) heart failure; E11.22 Type 2 diabetes mellitus with diabetic chronic kidney disease; N18.6 End stage renal disease; D63.1 Anemia in chronic kidney disease; E78.5 Hyperlipidemia, unspecified; E11.43 Type 2 diabetes mellitus with diabetic autonomic (poly)neuropathy; K31.89 Other diseases of stomach and duodenum; K21.9 Gastro-esophageal reflux disease without esophagitis; M10.9 Gout, unspecified; E87.70 Fluid overload, unspecified; E87.1 Hypo-osmolality and hyponatremia; E87.6 Hypokalemia; E88.09 Other disorders of plasma-protein metabolism, not elsewhere classified; I25.10 Atherosclerotic heart disease of native coronary artery without angina pectoris; Z95.5 Presence of coronary angioplasty implant and graft; Z99.2 Dependence on renal dialysis; Z79.4 Long term (current) use of insulin
CPT/HCPCS: 36415; 71046; 80053; 80069; 82947; 83735; 84484; 85014; 85018; 85025; 99284; J0881; J1644; J3475; J7050

== ENCOUNTER → 2019-11-13 | Outpatient (CLI) | payer MEDICARE, BC ==
[2019-11-13 09:56] LABS: Albumin, Blood 3.5 g/dL (3.4-5.0); Anion Gap 10 mmol/L (6-16); Blood Urea Nitrogen 70 mg/dL (8-24); Bun/Creatinine Ratio 28.1 (12.0-20.0); CO2, Blood 22 mmol/L (21-32); Calcium, Blood 8.8 mg/dL (8.5-10.1); Chloride, Blood 101 mmol/L (98-108); Creatinine, Blood 2.49 mg/dL (0.60-1.20); Glomerular Filtration Rate 27 (60-); Glucose, Blood 403 mg/dL (70-99); Phosphorus, Blood 4.3 mg/dL (2.5-4.9); Potassium, Blood 4.4 mmol/L (3.5-5.5); Sodium, Blood 133 mmol/L (136-145); Uric Acid, Blood 9.9 mg/dL (3.5-7.2)
[2019-11-13 10:24] LABS: Percent Saturation 35.2 % (20.0-50.0)
== END | disposition home or self-care (01) ==
LOC: LAB 09:21 → LAB SHORT 09:21
PROVIDERS: Internal Medicine Nephrology
DX: N18.3 Chronic kidney disease, stage 3 (moderate) (principal); D63.1 Anemia in chronic kidney disease; N25.81 Secondary hyperparathyroidism of renal origin; E55.9 Vitamin D deficiency, unspecified; E78.00 Pure hypercholesterolemia, unspecified; R76.9 Abnormal immunological finding in serum, unspecified; R94.5 Abnormal results of liver function studies; R94.6 Abnormal results of thyroid function studies; G60.9 Hereditary and idiopathic neuropathy, unspecified
CPT/HCPCS: 80069; 82306; 82607; 82728; 82746; 83540; 83550; 83970; 84443; 84550; 85018

== ENCOUNTER 2020-04-01 13:38 | Emergency (ER) | payer MEDICARE, BC ==
[~2020-04-01] VITALS: Ht 170.2 cm; Wt 74.4 kg
[~2020-04-01 13:38] MED LIST changes: -CARV6.25 PO; +CARVEDILOL12.5 MG PO; +ISOSORBIDE MONO30 MG PO; -Isosorbide Mono60 MG PO; +Midodrine HCl5 MG PO; +PRINIVIL5 M1 PO; +SINEMET 25-1001 EACH PO; -Sinemet 25-1001 EACH PO
[2020-04-01 13:55] LABS: Calcium, Ionized (POC) 0.95 mmol/L (1.10-1.46); Chloride (POC) 92 mmol/L (98-108); Creatinine (POC) 3.1 mg/dL (0.8-1.3); Glucose (ISTAT POC) 282 mg/dL (70-99); Hemoglobin (POC) 12.6 g/dL (13.5-17.5); Potassium (POC) 4.8 mmol/L (3.5-5.5); Sodium (POC) 133 mmol/L (135-148); Total CO2 (POC) 34 mmol/L (21-32)
== END 2020-04-01 15:36 | disposition home or self-care (01) ==
LOC: ER 13:38
PROVIDERS: Emergency Medicine
DX: R55 Syncope and collapse (principal); R11.10 Vomiting, unspecified; I13.2 Hypertensive heart and chronic kidney disease with heart failure and with stage 5 chronic kidney disease, or end stage renal disease; N18.6 End stage renal disease; E11.22 Type 2 diabetes mellitus with diabetic chronic kidney disease; I50.42 Chronic combined systolic (congestive) and diastolic (congestive) heart failure; K21.9 Gastro-esophageal reflux disease without esophagitis; D63.1 Anemia in chronic kidney disease; I25.2 Old myocardial infarction; E11.43 Type 2 diabetes mellitus with diabetic autonomic (poly)neuropathy; K31.84 Gastroparesis; Z88.5 Allergy status to narcotic agent; Z79.82 Long term (current) use of aspirin; Z79.4 Long term (current) use of insulin; Z79.899 Other long term (current) drug therapy; Z87.891 Personal history of nicotine dependence; Z99.2 Dependence on renal dialysis
CPT/HCPCS: 80047; 85014; 93005; 93010; 99284-25

== ENCOUNTER 2020-11-02 14:22 | Observation (INO) | payer OTHER, MEDICARE, BC ==
[~2020-11-02] VITALS: Ht 170.2 cm; Wt 77.3 kg
[~2020-11-02 14:22] MED LIST changes: +ASCO500 PO; +BASAGLAR K100 UNIT/1 SC; +CARV25 PO; -CARVEDILOL12.5 MG PO; -Fruity C250 MG PO; +MIDO5 PO; -Midodrine HCl5 MG PO
[2020-11-02] MEDS ORDERED: DAILY-VITE1 EACH PO (14:45)
[2020-11-02] MEDS ORDERED: ROPI1 PO (14:45)
[2020-11-02 15:08] LABS: BASOPHILS ABSOLUTE AUTO 0.15 K/mm3 (0.00-0.23); BASOPHILS PERCENT AUTO 1 % (0-2); EOSINOPHILS ABSOLUTE AUTO 0.31 K/mm3 (0.00-0.68); EOSINOPHILS PERCENT AUTO 2 % (0-6); Hematocrit 35.6 % (37.0-53.0); Hemoglobin 11.8 g/dL (13.5-17.5); IMMATURE GRAN ABSOLUTE AUTO 0.15 K/mm3 (0.00-0.10); IMMATURE GRAN PERCENT AUTO 1 % (0-1); LYMPHOCYTES ABSOLUTE AUTO 1.92 K/mm3 (0.84-5.20); LYMPHOCYTES PERCENT AUTO 13 % (21-46); MONOCYTES ABSOLUTE AUTO 0.88 K/mm3 (0.16-1.47); MONOCYTES PERCENT AUTO 6 % (4-13); Mean Corpuscular HGB 30.2 pg (26.0-34.0); Mean Corpuscular HGB Conc 33.1 g/dL (31.5-36.5); Mean Corpuscular Volume 91 fL (80-100); Mean Platelet Volume 9.7 fL (9.1-12.4); NEUTROPHILS ABSOLUTE AUTO 11.97 K/mm3 (1.96-9.15); NEUTROPHILS PERCENT AUTO 78 % (41-73); Platelet Count 270 K/mm3 (150-400); RDW Coefficient Variation 14.8 % (11.7-14.2); RDW Standard Deviation 48.2 fL (35.1-46.3); Red Blood Cell Count 3.91 M/mm3 (4.30-5.90); White Blood Cell Count 15.38 K/mm3 (4.00-11.30)
[2020-11-02 15:16] LABS: Albumin, Blood 3.6 g/dL (3.4-5.0); Albumin/Globulin Ratio 0.8 (0.8-1.8); Bilirubin, Total 0.7 mg/dL (0.1-1.0); Bun/Creatinine Ratio 13.3 (12.0-20.0); Calcium, Blood 9.1 mg/dL (8.5-10.1); Creatinine, Blood 2.1 mg/dL (0.60-1.20); Globulin, Blood 4.7 g/dL (2.2-4.0); Magnesium, Blood 1.8 mg/dL (1.6-2.4); Potassium, Blood 3.6 mmol/L (3.5-5.5); Total Protein, Blood 8.3 g/dL (6.4-8.2); Troponin I 0.182 ng/mL (0.000-0.040)
[2020-11-02] MEDS ORDERED: PANTOPRAZOLE SO40 M2 PO (16:20)
[2020-11-02] MEDS ORDERED: FOLI1 PO (16:20)
[2020-11-02] MEDS ORDERED: ROPINIROLE HCL0.5 MG PO (16:21)
[2020-11-02] MEDS ORDERED: TORS10 PO (18:41)
[2020-11-02 18:56] LABS: Influenza A, PCR Negative (NEGATIVE); Influenza B, PCR Negative (NEGATIVE); Resp Syncytial Virus, PCR Negative (NEGATIVE); SARS-Cov-2 (COVID-19) PCR, MMC Negative (NEGATIVE)
[2020-11-02 20:24] LABS: Source, Urine Clean Catch
[2020-11-02 20:26] LABS: Bilirubin, Urine Neg (Neg); Blood, Urine Neg (Neg); Glucose Qualitative, Urine 1+ (Neg); Ketones, Urine 1+ (Neg); Leukocyte Esterase, Urine 1+ (Neg); Nitrite, Urine Neg (Neg); Protein, Urine 3+ (Neg); Urobilinogen, Urine NORM (Normal)
[2020-11-02 20:34] LABS: Appearance, Urine Clear (Clear); Color, Urine Yellow (P-Yellow)
[2020-11-02 20:35] LABS: Bacteria Few /hpf; Red Blood Cells, Urine 0-2 /hpf (0-2); Squamous Epithelial Cells Many /hpf (Few)
--- NOTE | 2020-11-03 04:28 | NUR ---
ORTHOPEDIC CODER SUMMARY PT HAD NO NEW S/S THIS SHIFT. PT WAS ABLE TO AMBULATE W FWW TO BATHROOM W NO DIZZINESS. PT DENIED ANY PAIN OR NAUSEA THIS SHIFT. PT SLEPT FOR MOST OF THE SHIFT CCOMFORTABLY W CALL LIGHT WITHIN REACH. PT IS ALERT AND ORIENTED. BED ALARM ON, BED IN LOW POSITION. WCTM.
[2020-11-03 05:10] LABS: BASOPHILS ABSOLUTE AUTO 0.12 K/mm3 (0.00-0.23); BASOPHILS PERCENT AUTO 1 % (0-2); EOSINOPHILS ABSOLUTE AUTO 0.22 K/mm3 (0.00-0.68); EOSINOPHILS PERCENT AUTO 2 % (0-6); Hematocrit 31.6 % (37.0-53.0); Hemoglobin 10.6 g/dL (13.5-17.5); IMMATURE GRAN ABSOLUTE AUTO 0.05 K/mm3 (0.00-0.10); IMMATURE GRAN PERCENT AUTO 1 % (0-1); LYMPHOCYTES ABSOLUTE AUTO 2.55 K/mm3 (0.84-5.20); LYMPHOCYTES PERCENT AUTO 26 % (21-46); MONOCYTES ABSOLUTE AUTO 0.68 K/mm3 (0.16-1.47); MONOCYTES PERCENT AUTO 7 % (4-13); Mean Corpuscular HGB 30.9 pg (26.0-34.0); Mean Corpuscular HGB Conc 33.5 g/dL (31.5-36.5); Mean Corpuscular Volume 92 fL (80-100); Mean Platelet Volume 9.9 fL (9.1-12.4); NEUTROPHILS ABSOLUTE AUTO 6.29 K/mm3 (1.96-9.15); NEUTROPHILS PERCENT AUTO 64 % (41-73); Platelet Count 227 K/mm3 (150-400); RDW Coefficient Variation 15.1 % (11.7-14.2); RDW Standard Deviation 50.6 fL (35.1-46.3); Red Blood Cell Count 3.43 M/mm3 (4.30-5.90); White Blood Cell Count 9.91 K/mm3 (4.00-11.30)
[2020-11-03 05:31] LABS: Bun/Creatinine Ratio 11.2 (12.0-20.0); Calcium, Blood 8.7 mg/dL (8.5-10.1); Creatinine, Blood 3.66 mg/dL (0.60-1.20); Potassium, Blood 3.3 mmol/L (3.5-5.5)
--- NOTE | 2020-11-03 19:28 | NUR ---
PATIENT DISCHARGED TO HOME ACCOMPANIED BY . PT AND VERBALIZED UNDERSTANDING OF D/C INSTRUCTIONS. IV SALINE LOCK REMOVED WITHOUT INCIDENT. PATIENT OFF UNIT AT 1840 VIA W/C. NO PERSONAL BELONGINGS LEFT BEHIND IN ROOM.
== END 2020-11-03 18:52 | disposition home or self-care (01) ==
LOC: ER 14:22 → MEDS 14:23
PROVIDERS: Emergency Medicine; ADMIT Internal Medicine
DX: R55 Syncope and collapse (principal); I13.2 Hypertensive heart and chronic kidney disease with heart failure and with stage 5 chronic kidney disease, or end stage renal disease; I50.42 Chronic combined systolic (congestive) and diastolic (congestive) heart failure; E11.22 Type 2 diabetes mellitus with diabetic chronic kidney disease; E11.43 Type 2 diabetes mellitus with diabetic autonomic (poly)neuropathy; K31.84 Gastroparesis; N18.6 End stage renal disease; I25.10 Atherosclerotic heart disease of native coronary artery without angina pectoris; I25.2 Old myocardial infarction; M10.9 Gout, unspecified; R77.8 Other specified abnormalities of plasma proteins; E78.5 Hyperlipidemia, unspecified; D63.1 Anemia in chronic kidney disease; F32.9 Major depressive disorder, single episode, unspecified; G47.33 Obstructive sleep apnea (adult) (pediatric); E03.9 Hypothyroidism, unspecified; Z79.82 Long term (current) use of aspirin; Z79.4 Long term (current) use of insulin; Z79.899 Other long term (current) drug therapy; Z95.5 Presence of coronary angioplasty implant and graft; Z87.891 Personal history of nicotine dependence; Z86.74 Personal history of sudden cardiac arrest; Z99.2 Dependence on renal dialysis; Z20.822 Contact with and (suspected) exposure to COVID-19
CPT/HCPCS: 0241U; 36415; 71045; 80048; 80053; 81001; 82947; 83735; 83880; 84484; 85025; 87086; 93005; 93010; 93306; 94660; 94762; 96372; 99285-25; A9270; G0378; J1644

== ENCOUNTER 2021-01-23 10:59 | Emergency (ER) | payer MEDICARE, BC ==
[~2021-01-23] VITALS: Ht 167.6 cm; Wt 79.0 kg
[~2021-01-23 10:59] MED LIST changes: +DAILY-VITE1 EACH PO; +PANTOPRAZOLE SO40 M2 PO; +ROPI1 PO; +ROPINIROLE HCL0.5 MG PO
[2021-01-23 11:40] LABS: BASOPHILS ABSOLUTE AUTO 0.11 K/mm3 (0.00-0.23); BASOPHILS PERCENT AUTO 1 % (0-2); EOSINOPHILS ABSOLUTE AUTO 0.28 K/mm3 (0.00-0.68); EOSINOPHILS PERCENT AUTO 2 % (0-6); Hematocrit 31.9 % (37.0-53.0); Hemoglobin 10.4 g/dL (13.5-17.5); IMMATURE GRAN ABSOLUTE AUTO 0.09 K/mm3 (0.00-0.10); IMMATURE GRAN PERCENT AUTO 1 % (0-1); LYMPHOCYTES ABSOLUTE AUTO 1.43 K/mm3 (0.84-5.20); LYMPHOCYTES PERCENT AUTO 11 % (21-46); MONOCYTES ABSOLUTE AUTO 0.63 K/mm3 (0.16-1.47); MONOCYTES PERCENT AUTO 5 % (4-13); Mean Corpuscular HGB 31.2 pg (26.0-34.0); Mean Corpuscular HGB Conc 32.6 g/dL (31.5-36.5); Mean Corpuscular Volume 96 fL (80-100); Mean Platelet Volume 9.8 fL (9.1-12.4); NEUTROPHILS ABSOLUTE AUTO 10.87 K/mm3 (1.96-9.15); NEUTROPHILS PERCENT AUTO 81 % (41-73); Platelet Count 250 K/mm3 (150-400); RDW Coefficient Variation 15.1 % (11.7-14.2); RDW Standard Deviation 51.9 fL (35.1-46.3); Red Blood Cell Count 3.33 M/mm3 (4.30-5.90); White Blood Cell Count 13.41 K/mm3 (4.00-11.30)
[2021-01-23 11:55] LABS: Albumin, Blood 3.4 g/dL (3.4-5.0); Albumin/Globulin Ratio 0.8 (0.8-1.8); Bilirubin, Total 0.7 mg/dL (0.1-1.0); Bun/Creatinine Ratio 13.8 (12.0-20.0); Creatinine, Blood 3.76 mg/dL (0.60-1.20); Globulin, Blood 4.3 g/dL (2.2-4.0); Potassium, Blood 4.3 mmol/L (3.5-5.5); Total Protein, Blood 7.7 g/dL (6.4-8.2); Troponin I 0.164 ng/mL (0.000-0.040)
== END 2021-01-23 13:23 | disposition home or self-care (01) ==
LOC: ER 10:59
PROVIDERS: Emergency Medicine
DX: R55 Syncope and collapse (principal); E11.22 Type 2 diabetes mellitus with diabetic chronic kidney disease; I13.2 Hypertensive heart and chronic kidney disease with heart failure and with stage 5 chronic kidney disease, or end stage renal disease; I50.42 Chronic combined systolic (congestive) and diastolic (congestive) heart failure; N18.6 End stage renal disease; K21.9 Gastro-esophageal reflux disease without esophagitis; E78.5 Hyperlipidemia, unspecified; Z99.2 Dependence on renal dialysis; Z79.4 Long term (current) use of insulin; Z79.82 Long term (current) use of aspirin; Z79.899 Other long term (current) drug therapy
CPT/HCPCS: 36415; 71045; 80053; 84484; 85025; 93005; 93010; 99284-25